=== PATIENT | female | born 1980 | race Caucasian/White ===

== ENCOUNTER 2020-11-21 14:43 | Emergency (ER) | payer MEDICAID, OTHER, SELFPAY ==
[2020-11-21 15:53] VITALS: PULSE 90; RESP 16; TEMP 36.7; O2SAT 100; BMI 22.2
--- NOTE | 2020-11-21 16:14 | ED_ITS ---
HPI - Skin/Abscess/Foreign Bdy General Chief complaint: Skin/Abscess/Foreign Body Stated complaint: cyst Time Seen by Provider: 11/21/20 15:54 Source: patient Mode of arrival: ambulatory Limitations: language barrier History of Present Illness HPI narrative: 40 y/o female presents to the ER with a painful large cyst behind her right ear that has been worsening for the last 6 days. She denies fever or chills. No drainage from the cyst. She has history of similar cyst on the front of her neck that needed to be drained and excised in the past. She is not an IV drug user. She denies any hearing changes, no drainage from her ear. No neck pain or headaches. MD complaint: abscess/boil Onset (ago): day(s) (6) Tetanus up to date: yes Location: head Severity: moderate Severity scale (1-10): 6 Quality: aching Pain Consistency: constant Relieving factors: none Exacerbating factors: palpation Context: none Associated symptoms: denies other symptoms Treatments prior to arrival: none Related Data Previous Rx's Medication Instructions Recorded cephalexin 500 mg capsule 500 mg PO Q6H 7 Days #28 cap 11/21/20 doxycycline hyclate 100 mg tablet 100 mg PO BID 7 Days #14 tab 11/21/20 Allergies Allergy/AdvReac Type Severity Reaction Status Date / Time No Known Allergies Allergy Verified 11/21/20 15:57 Review of Systems Review of Systems: Constitutional: No Fever, No Chills ENT/Mouth: No ear pain, no dental pain Cardiovascular: No Chest Pain, No SOB Gastrointestinal: No Nausea, No Vomiting Musculoskeletal: No joint pain, No Myalgias Skin: + Skin Lesions, No rash Neuro: No Dizziness, No Headache Heme/Lymph: No Bruising, + Lymphadenopathy PMFSH Social History Social History Advance Directives: No Advance Directives Information Provided: Yes Patient : No Physical Exam Vital Signs: Vital Signs: Last Vital Signs Temp 98.0 F 11/21/20 15:53 Pulse 90 11/21/20 15:53 Resp 16 11/21/20 15:53 Pulse Ox 100 11/21/20 15:53 Body Mass Index 22.2 Appearance: Alert. Oriented X3. No acute distress. Eyes: Pupils equal, round and reactive to light. ENT: Behind right ear there is a large 2.5 cm cirucular, tender, erythematous lesion with central fluctuance c/w abscess. TM normal bilaterally. Neck: Normal inspection. Neck supple. No cervical LAD Respiratory: No respiratory distress. Breath sounds normal. Skin: Skin warm and dry. Normal skin color. Normal skin turgor. No rashes. Neuro: Oriented X 3. Nonfocal Course Course Course Narrative: 40 y/o female presenting with abscess behind right ear. No systemic signs of infection. Doubt mastoiditis. Drained and packing placed. Will d/c with abx. To return in 48 hours for packing removal and wound reassessment. D/c instructions reviewed with senior staff consultant and extra wound care supplied provided. Stable for d/c home. Procedures Abscess I/D Site: face Side (if applicable): right (behind right ear) Local Anesthetic: lidocaine 2% Amount of anesthesia used (mL): 1 Technique: incised with blade Sent for culture/gram staining?: No Irrigation: Yes Packing used?: iodoform Complications: bleeding Critical Care Time Critical Care Time Critical Care Time: No Discharge Plan Discharge Clinical Impression: Abscess of skin or subcutaneous tissue Qualifiers: Site of cutaneous abscess: head Qualified Code(s): L02.811 - Cutaneous abscess of head [any part, except face] Patient Disposition: Home, Self-Care Instructions: Abscess Incision and Drainage (DC) Additional Instructions: Your abscess was drained today and packing was placed to help healing from the inside out Recommend following up with your doctor or coming back to the ER in 2 days for re-evaluation and packing removal Take the prescribed antibiotics as directed to help treat the infection If you develop new or worsening symptoms call 911 or come back to the ER for further evaluation. Prescriptions: New doxycycline hyclate 100 mg tablet 100 mg PO BID 7 Days Qty: 14 RF: 0 cephalexin 500 mg capsule 500 mg PO Q6H 7 Days Qty: 28 RF: 0 Print Language: [place]ijani
[2020-11-21] MEDS: Lidocaine HCl 2 % MPF 5 ML VIAL INFILTRATI (16:48)
--- NOTE | 2020-11-21 16:48 | PC.NURSE ---
PT ABCESS CLEANED AND DRAINED AND PACKED BY KRYSTYNA JENSEN DSD APPLIED.
== END 2020-11-21 16:49 | disposition home or self-care (01) ==
PROVIDERS: Emergency Provider Emergency Medicine Emergency Medical Services
DX: L02.811 Cutaneous abscess of head [any part, except face] (principal)
CPT/HCPCS: 10060; 99283; 99284

== ENCOUNTER 2020-12-05 12:29 | Emergency (ER) | payer MEDICAID, OTHER, SELFPAY ==
[2020-12-05 12:34] VITALS: BP 118/86; PULSE 89; RESP 18; TEMP 36.6; O2SAT 100; BMI 23.3
--- NOTE | 2020-12-05 14:32 | ED.GENADULT ---
HPI - General Adult General Chief complaint: General Medical Stated complaint: lump behind ear Time Seen by Provider: 12/05/20 14:30 Source: patient Mode of arrival: ambulatory Limitations: language barrier History of Present Illness HPI narrative: 40-year-old female presents for lump behind her right ear that has gotten larger in the last 4 days. Patient was seen November 21 for lump behind her right ear which she had had for 3 weeks, she had this drained and packed, put on antibiotics, and it resolved. Four days ago this came back. Patient would like to have it surgically removed so that this does not come back in the future. Patient had is feeling well otherwise, no fevers, no trismus, no ear pain, no pain over the mastoid bone. Related Data Previous Rx's Medication Instructions Recorded cephalexin 500 mg capsule 500 mg PO Q6H 7 Days #28 cap 11/21/20 doxycycline hyclate 100 mg tablet 100 mg PO BID 7 Days #14 tab 11/21/20 cephalexin 500 mg capsule 500 mg PO QID 7 Days #28 cap 12/05/20 doxycycline hyclate 100 mg tablet 100 mg PO BID 10 Days #20 tab 12/05/20 Allergies Allergy/AdvReac Type Severity Reaction Status Date / Time No Known Allergies Allergy Verified 12/05/20 12:33 Review of Systems Constitutional: Constitutional: Denies body ache(s), Denies chills, Denies fatigue, Denies fever(s), Denies headache(s), Denies malaise and Denies weakness Eyes: Eyes: Denies diplopia ENT: Denies vertigo, Denies dizziness, Denies otalgia, Denies headache(s), Denies mouth pain, Denies post nasal drip, Denies sinus pain, Denies sinus pressure, Denies sore throat and Denies throat swelling Cardiovascular: Cardiovascular: Denies chest pain, Denies syncope, Denies leg edema, Denies lightheadedness, Denies Loss of Consciousness, Denies palpitations and Denies dyspnea Respiratory: Respiratory: Denies chest congestion, Denies cough and Denies dyspnea Gastrointestinal: Gastrointestinal: Reports abdominal pain, Denies hematochezia, Denies constipation, Denies diarrhea and Denies vomiting Musculoskeletal: Musculoskeletal: Reports no additional musculoskeletal complaints Integumentary/Breasts: Comments: Bent behind right ear Neurologic: Denies confusion, Denies vertigo, Denies dizziness, Denies syncope, Denies headache(s) and Denies weakness Psychiatric: Psychiatric: Denies anxiety, Denies confusion and Denies depression Endocrine: Endocrine: Denies fatigue and Denies palpitations Allergic/Immunologic: Allergic/Immunologic: Denies throat swelling PMFSH Past Medical History Medical History No pertinent past medical history Social History Social History Advance Directives: No Advance Directives Information Provided: No Patient : No Physical Exam Vital Signs: Vital Signs: Last Vital Signs Temp 97.9 F 12/05/20 12:34 Pulse 89 12/05/20 12:34 Resp 18 12/05/20 12:34 BP 118/86 12/05/20 12:34 Pulse Ox 100 12/05/20 12:34 Body Mass Index 23.3 Const: General: No confusion Nutritional Appearance: well nourished Orientation/consciousness: No confusion Limitations: no limitations HENMT: Other: No pain over mastoid area right ear Head: Yes normal to inspection, Yes normocephalic and Yes atraumatic Ears: hearing grossly normal bilaterally, external ears normal, TM's normal bilaterally and EAC's normal General nose exam: Normal external nose present Face and sinus: Yes normal facial exam and Yes sinuses nontender Mouth: Normal oral and palatal mucosa present Throat: Yes posterior oropharynx normal Eyes: Conjunctivae: conjunctivae normal Pupils: Equal, round and reactive pupils present EOM: EOMs intact bilaterally Neck: Neck: Yes full ROM, Yes no lymphadenopathy and Yes supple Resp: Effort & Inspection: normal respiratory effort and able to speak in complete sentences Auscultation: clear to auscultation bilaterally, no crackles, no rales, no rhonchi and no wheezes Cardio: Rate: regular rate Rhythm: regular rhythm Heart sounds: S1 normal heart sound present and S2 normal heart sound present GI: Inspection: Yes normal to inspection Palpation (GI): Soft to palpation, nontender, no guarding and not rigid Percussion: Yes normal to percussion Auscultation: normal bowel sounds Skin: Other: Cyst behind right ear, about 1 mm in diameter that is fluctuant Neuro: General: No confusion Cranial nerves: Yes Equal, round and reactive pupils present Extrem: General: Yes normal to inspection and Yes full ROM Psych: Appearance: grossly normal Affect: normal affect Attitude: cooperative Thought process: Normal thought process present Course Course Course Narrative: 40-year-old female with a recurrent cyst behind her right ear, incision and drainage was performed today, cyst was packed, will have patient return in 3 days for recheck and packing removal. Will start patient on doxycycline and Keflex. I did send for wound culture. The material that was expressed from this cyst was thick and white and granular in texture. Patient tolerated procedure well. Will refer to general surgery Procedures Abscess I/D Site: face Side (if applicable): right Local Anesthetic: lidocaine 1% Amount of anesthesia used (mL): 1 Technique: incised with blade Amount of fluid expressed (mL): 3 Sent for culture/gram staining?: Yes Irrigation: No Packing used?: iodoform Discharge Plan Discharge Clinical Impression: Cyst Patient Disposition: Home, Self-Care Instructions: Abscess Incision and Drainage (DC) Additional Instructions: Please call [facility] on Monday at his number: Please leave the packing in until Monday when I want you to return to the emergency room to be seen. Please fill the prescriptions for antibiotics and take them as prescribed. If you have fevers, worsening pain, trouble opening her mouth, please return to be seen [facility] a [facility]ug?a [facility] de [facility] el a corrigan n[place]: Por favor, deje el empaque hasta el mike cuando quiero que regrese a la dany de emergencias para que lo atiendan. Surta las recetas de antibi?ticos y t?melas seg?n lo prescrito. Si tiene fiebre, empeoramiento del dolor, problemas para abrir la boca, vuelva para que lo vean. Prescriptions: New doxycycline hyclate 100 mg tablet 100 mg PO BID 10 Days Qty: 20 RF: 0 cephalexin 500 mg capsule 500 mg PO QID 7 Days Qty: 28 RF: 0 No Action doxycycline hyclate 100 mg tablet 100 mg PO BID 7 Days Qty: 14 RF: 0 cephalexin 500 mg capsule 500 mg PO Q6H 7 Days Qty: 28 RF: 0 Referrals: Rambissoon,Rosa, MD [Physician] - 2 days (recurrent cyst behind right ear ) Print Language: Citizen Of [place]
[2020-12-05] MEDS: Lidocaine HCl 1 % 20 ML VIAL 10 ML INFILTRATI (15:42)
== END 2020-12-05 15:57 | disposition home or self-care (01) ==
PROVIDERS: Emergency Provider Emergency Medicine Emergency Medical Services
DX: H60.01 Abscess of right external ear (principal); H92.01 Otalgia, right ear
CPT/HCPCS: 69000; 87071; 87205; 99284

== ENCOUNTER 2020-12-08 08:50 | Emergency (ER) | payer MEDICAID, OTHER, SELFPAY ==
[2020-12-08 09:22] VITALS: BP 125/92; PULSE 78; RESP 18; TEMP 36.9; O2SAT 100; BMI 29.6
--- NOTE | 2020-12-08 09:46 | ED_ITS ---
HPI - Wound/Laceration General Chief Complaint: Wound/Laceration Stated Complaint: wound check Time Seen by Provider: 12/08/20 09:41 Source: patient and outside medical sales representative ([employer] outside medical sales representative ) Mode of arrival: ambulatory Limitations: language barrier History of Present Illness HPI narrative: Patient seen here 12/05 for recurrent abscess behind right ear. She was initially seen 11/21 for I&D and given course of PO keflex. Had some improvement but then the abscess returned. She did have an I&D on and was started on Keflex and doxycycline. She was also referred to General surgery. Patient is here for wound check and packing removal. She reports some mild nausea from the antibiotics but denies any fevers, chills, vomiting or diarrhea. Related Data Previous Rx's Medication Instructions Recorded cephalexin 500 mg capsule 500 mg PO Q6H 7 Days #28 cap 11/21/20 doxycycline hyclate 100 mg tablet 100 mg PO BID 7 Days #14 tab 11/21/20 cephalexin 500 mg capsule 500 mg PO QID 7 Days #28 cap 12/05/20 doxycycline hyclate 100 mg tablet 100 mg PO BID 10 Days #20 tab 12/05/20 Allergies Allergy/AdvReac Type Severity Reaction Status Date / Time No Known Allergies Allergy Verified 12/08/20 09:22 Review of Systems Review of Systems: Yes all other systems are reviewed and are negative Constitutional: Constitutional: Reports no additional constitutional complaints, Denies body ache(s), Denies chills, Denies fever(s), Denies headache(s) and Denies weakness Eyes: Eyes: Reports no additional eye complaints and Denies change in vision ENT: Reports system reviewed and no additional complaints, except as documented, Denies dizziness, Denies headache(s), Denies nasal congestion, Denies nasal discharge and Denies neck pain Cardiovascular: Cardiovascular: Reports no additional cardiovascular complaints, Denies chest pain, Denies leg edema and Denies dyspnea Respiratory: Respiratory: Reports no additional respiratory complaints, Denies cough and Denies dyspnea Gastrointestinal: Gastrointestinal: Reports no additional gastrointestinal complaints, Denies abdominal pain, Denies diarrhea, Reports nausea and Denies vomiting Genitourinary: Genitourinary: Reports no additional female genitourinary complaints and Denies urinary incontinence Musculoskeletal: Musculoskeletal: Reports no additional musculoskeletal complaints, Denies back pain, Denies arthralgias, Denies joint swelling, Denies neck pain, Denies numbness and Denies tingling Integumentary/Breasts: Skin/Breast: Reports system reviewed and no additional complaints, except as docu and Denies rash Neurologic: Reports system reviewed and no additional complaints, except as documented, Denies Abnormal speech present, Denies dizziness, Denies head ache(s), Denies numbness, Denies tingling and Denies weakness PMFSH Past Medical History Attestation statement: The following information was validated with the patient. Source: old records reviewed and nursing notes reviewed Medical History No pertinent past medical history Social History Social History Advance Directives: No Patient : No Physical Exam Vital Signs: Vital Signs: Last Vital Signs Temp 98.4 F 12/08/20 09:22 Pulse 78 12/08/20 09:22 Resp 18 12/08/20 09:22 BP 125/92 H 12/08/20 09:22 Pulse Ox 100 12/08/20 09:22 Body Mass Index 29.6 Const: General: cooperative, healthy appearing, comfortable and no acute distress Orientation/consciousness: patient oriented x3 Limitations: no limitations HENMT: Other: Postauricular there is a small area with a healing abscess noted. No fluctuance, induration or swelling. No tenderness. Unable to express any drainage in the site. Head: Yes normal to inspection Ears: h earing grossly normal bilaterally General nose exam: Normal external nose present Face and sinus: Yes normal facial exam Mouth: Normal oral and palatal mucosa present Throat: Yes posterior oropharynx normal Eyes: General: appearance normal, both eyes and all related structures Pupils: Equal, round and reactive pupils present Neck: Neck: Yes normal visual inspection Chest: Chest palpation & inspection: normal inspection of the chest Resp: Effort & Inspection: normal respiratory effort Auscultation: clear to auscultation bilaterally Cardio: Rate: regular rate Rhythm: regular rhythm Peripheral pulses: Peripheral pulses 2+ throughout GI: Inspection: Yes normal to inspection Palpation (GI): Soft to palpation and nontender Auscultation: normal bowel sounds Back/Spine/Pelvis: Thoracic/Lumbar Spine: thoracic and lumbar spine normal to inspection Skin: General skin exam: no rashes or lesions noted Neuro: General: patient oriented x3, no focal motor deficits and normal sensation to monofilament Cranial nerves: Yes Equal, round and reactive pupils present Cognition (Neuro): normal cognition Speech: No Abnormal speech present Gait exam (Neuro): Normal gait present Motor exam (neuro): 5/5 motor strength present throughout Extrem: General: Yes normal to inspection Course Course Course Narrative: Healing abscess behind the right ear. Packing is removed. Area cleansed with normal saline and a topical antibiotic ointment. Instructed patient to continue with oral antibiotics and follow-up with general surgery as previously recommended. Reviewed worrisome signs and symptoms of when to return to the emergency department. Comfortable discharge home. MDM - Wound/Laceration Differential Diagnosis Differential diagnosis: Likely abscess Medical Records Attestation: I reviewed the patient's medical records. Lab Data Attestation: I reviewed the patient's lab results. Discharge Plan Discharge Clinical Impression: Abscess re-check Patient Disposition: Home, Self-Care Instructions: Abscess Follow-up (ED) Additional Instructions: Continue to follow-up with general surgery as previously recommended Take your antibiotics with food Prescriptions: No Action doxycycline hyclate 100 mg tablet 100 mg PO BID 7 Days Qty: 14 RF: 0 cephalexin 500 mg capsule 500 mg PO Q6H 7 Days Qty: 28 RF: 0 doxycycline hyclate 100 mg tablet 100 mg PO BID 10 Days Qty: 20 RF: 0 cephalexin 500 mg capsule 500 mg PO QID 7 Days Qty: 28 RF: 0 Referrals: Physician,Unknown [Primary Care Provider] - 2 days
== END 2020-12-08 10:18 | disposition home or self-care (01) ==
PROVIDERS: Emergency Provider Emergency Medicine
DX: Z48.00 Encounter for change or removal of nonsurgical wound dressing (principal)
CPT/HCPCS: 99282; 99283

== ENCOUNTER 2023-11-06 21:00 | Emergency (ER) | payer MEDICAID, OTHER, SELFPAY ==
[2023-11-06 21:06] VITALS: BP 135/86; PULSE 82; RESP 16; TEMP 36.6; O2SAT 100; BMI 27.4
[2023-11-07 01:57] VITALS: BP 157/95; PULSE 85; RESP 16; TEMP 36.7; O2SAT 100
--- NOTE | 2023-11-07 03:42 | ED_ITS ---
HPI - Back Pain/Injury General Chief Complaint: Back Pain/Injury Stated Complaint: lower back pain Time Seen by Provider: 11/07/23 03:22 Source: patient Mode of arrival: ambulatory Limitations: language barrier History of Present Illness ED Provider: Dr. Mir HPI Narrative: ZOË used for history and physical. Patient 3 months ago had back pain similar to the pain that she is having now, only it is worse today. Denies injury. Pain radiates down right leg. No bowel or bladder incontinence, no perineal numbness MD elicited complaint: back pain Pertinent past history: prior back pain Onset (ago): hour(s) Timing: constant Severity: moderate Related Data Previous Rx's ?Medication ?Instructions ?Recorded cephalexin 500 mg capsule 500 mg PO Q6H 7 days #28 caps 11/21/20 doxycycline hyclate 100 mg tablet 100 mg PO BID 7 days #14 tabs 11/21/20 cephalexin 500 mg capsule 500 mg PO QID 7 days #28 caps 12/05/20 doxycycline hyclate 100 mg tablet 100 mg PO BID 10 days #20 tabs 12/05/20 cyclobenzaprine 10 mg tablet 10 mg PO TID #10 tabs 11/07/23 naproxen 500 mg tablet (Naprosyn) 500 mg PO BID #20 tabs 11/07/23 Allergies Allergy/AdvReac Type Severity Reaction Status Date / Time No Known Allergies Allergy Verified 11/06/23 21:07 Review of Systems Review of Systems: Yes all other systems are reviewed and are negative Neurologic: Denies Sensory deficit (Neuro) [facility] Past Medical History Medical History No pertinent past medical history Social History Social History Advance Directives: No Advance Directives Information Provided: No Do you have a plan to hurt others: No Plan Physical Exam Vital Signs: Vital Signs: Last Vital Signs Temp 98.0 F 11/07/23 01:57 Pulse 85 11/07/23 01:57 Resp 16 11/07/23 01:57 BP 157/95 H 11/07/23 01:57 Pulse Ox 100 11/07/23 01:57 O2 Del Method Room Air 11/07/23 01:57 BMI result Body Mass Index 27.4 Const: General: healthy appearing Nutritional Appearance: average body habitus Orientation/consciousness: oriented to person and patient oriented x3 Limitations: no limitations HEENT: Head: Yes normal to inspection Ears: external ears normal General nose exam: Normal external nose present Mouth: Normal oral and palatal mucosa present and oropharynx normal Throat: Yes posterior oropharynx normal Eyes: General: appearance normal, both eyes and all related structures Neck: Other: supple Neck: Yes normal visual inspection Chest: Chest palpation & inspection: normal inspection of the chest Resp: Auscultation: clear to auscultation bilaterally Cardio: Jugular venous distension: no JVD Rate: regular rate Rhythm: regular rhythm Heart sounds: S1 normal heart sound present and S2 normal heart sound present GI: Inspection: Yes normal to inspection Palpation (GI): Soft to palpation, nontender and No hepatosplenomegaly present Auscultation: normal bowel sounds Back/Spine/Pelvis: Other: right SI and right sciatica pain, good leg strength, good dorsi and plantar flexion Skin: General skin exam: no rashes or lesions noted Neuro: General: oriented to person and patient oriented x3 Cranial nerves: Yes CN's II-XII intact bilaterally Motor exam (neuro): 5/5 motor strength present throughout Sensory Exam: No Sensory deficit (Neuro) Extrem: General: Yes normal to inspection Psych: Appearance: grossly normal Course Reevaluation(s) Reevaluation #1: patient given nsaids and flexeril will get patient home. She recently had plain xrays at another facility Time: 03:47 Medical Decision Making Differential Diagnosis Differential Diagnoses: The differential diagnosis associated with the presentation includes (lumbar pain, radiculopathy, sciatica) Tests considered The following testing was considered but not selected: MRI considered but patient is non focal with no bowel or bladder incontinence Discharge Plan Discharge Clinical Impression: Lumbar radiculopathy, Sciatica, Strain of lumbar region Patient Disposition: Home, Self-Care Instructions: Sciatica (ED), Lumbar Radiculopathy (ED), Lower Back Exercises (ED) Prescriptions: New cyclobenzaprine 10 mg tablet 10 mg PO TID Qty: 10 0RF naproxen [Naprosyn] 500 mg tablet 500 mg PO BID Qty: 20 0RF No Action doxycycline hyclate 100 mg tablet 100 mg PO BID 7 Days Qty: 14 0RF cephalexin 500 mg capsule 500 mg PO Q6H 7 Days Qty: 28 0RF doxycycline hyclate 100 mg tablet 100 mg PO BID 10 Days Qty: 20 0RF cephalexin 500 mg capsule 500 mg PO QID 7 Days Qty: 28 0RF Referrals: Physician,Unknown J [Primary Care Provider] - 5 days Print Language: Spanish
[2023-11-07] MEDS: Cyclobenzaprine HCl 10 MG TABLET PO (03:50)
[2023-11-07] MEDS: Ketorolac Tromethamine 60 MG/2 ML VIAL IM (03:51)
[2023-11-07 03:55] VITALS: BP 153/97; PULSE 88; RESP 14; TEMP 36.4; O2SAT 98
[2023-11-07 03:59] VITALS: BP 153/97; PULSE 88; RESP 14; TEMP 36.4; O2SAT 98
== END 2023-11-07 04:00 | disposition home or self-care (01) ==
PROVIDERS: Emergency Provider Emergency Medicine
DX: M54.16 Radiculopathy, lumbar region (principal)
CPT/HCPCS: 96372; 99284; J1885

== ENCOUNTER 2024-03-27 09:37 | Emergency (ER) | payer MEDICAID, OTHER, SELFPAY ==
[2024-03-27 10:20] VITALS: BP 146/102; PULSE 83; RESP 18; TEMP 36.2; O2SAT 99; BMI 28.0
--- NOTE | 2024-03-27 12:07 | ED.GENADULT ---
HPI - General Adult General Chief complaint: Allergic Reaction Stated complaint: ? Allergic Rx Time Seen by Provider: 03/27/24 12:06 Source: patient and gaming cage worker (all interactions with this patient were facilitated with a Finnish gaming cage worker ) Mode of arrival: ambulatory Limitations: language barrier (all interactions with this patient were facilitated with a Finnish gaming cage worker ) History of Present Illness ED Provider: Kelsy Palomares PA-C HPI narrative: Patient is a 43 year old assigned female at with no reported medical history presenting to the emergency department today with a swollen lymph node. Patient states that she got 3 vaccines on 03/25/2024 of COVID, influenza, and hepatitis B. Patient states that she noticed a small swollen lymph node in her left neck and she is concerned about it. Patient denies any pain there. Patient denies any dizziness, lightheadedness, abdominal pain, nausea, vomiting, fever, chills, blurry vision, double vision, loss of vision, chest pain, difficulty breathing, shortness of breath, back pain, night sweats, pain with urination, increased urinary frequency, increased urinary urgency, blood in her urine or stool, syncope or a near syncopal episode, recent trauma or falls, bowel incontinence, bladder incontinence, or any other complaints at this time. Relieving factors: none Exacerbating factors: none Associated symptoms: denies other symptoms Treatments prior to arrival: none Related Data Previous Rx's ?Medication ?Instructions ?Recorded cephalexin 500 mg capsule 500 mg PO Q6H 7 days #28 caps 11/21/20 doxycycline hyclate 100 mg tablet 100 mg PO BID 7 days #14 tabs 11/21/20 cephalexin 500 mg capsule 500 mg PO QID 7 days #28 caps 12/05/20 doxycycline hyclate 100 mg tablet 100 mg PO BID 10 days #20 tabs 12/05/20 cyclobenzaprine 10 mg tablet 10 mg PO TID #10 tabs 11/07/23 naproxen 500 mg tablet (Naprosyn) 500 mg PO BID #20 tabs 11/07/23 Allergies Allergy/AdvReac Type Severity Reaction Status Date / Time No Known Allergies Allergy Verified 03/27/24 10:21 Review of Systems Constitutional: Constitutional: Reports no additional constitutional complaints, Denies chills, Denies fever(s) and Denies night sweats Eyes: Eyes: Reports no additional eye complaints, Denies blurry vision, Denies change in vision, Denies diplopia, Denies eye discharge, Denies loss of vision and Denies eye pain ENT: Denies dizziness Comments: swollen left node in left neck Cardiovascular: Cardiovascular: Reports no additional cardiovascular complaints, Denies chest pain, Denies lightheadedness, Denies Loss of Consciousness and Denies dyspnea Respiratory: Respiratory: Reports no additional respiratory complaints and Denies dyspnea Gastrointestinal: Gastrointestinal: Reports no additional gastrointestinal complaints, Denies abdominal pain, Denies melena, Denies hematochezia, Denies change in bowel habits and Denies change in stool character Genitourinary: Genitourinary: Denies hematuria, Denies urinary frequency, Denies dysuria, Denies urinary incontinence, Denies urinary hesitancy and Denies urinary urgency Musculoskeletal: Musculoskeletal: Reports no additional musculoskeletal complaints, Denies numbness and Denies tingling Neurologic: Denies dizziness, Denies loss of vision, Denies numbness and Denies tingling Psychiatric: Psychiatric: Reports no additional psychiatric complaints Endocrine: Endocrine: Reports no additional endocrine complaints Hematologic/Lymphatic: Hematologic/Lymphatic: Reports no additional hematologic/lymphatic complaints Allergic/Immunologic: Allergic/Immunologic: Reports no additional allergic/immunologic complaints PMFSH Past Medical History Attestation statement: The following information was validated with the patient. Source: old records reviewed and nursing notes reviewed Medical History No pertinent past medical history Social History Social History Alcohol intake: never Advance Directives: No Advance Directives Information Provided: Yes Do you have a plan to hurt others: No Plan Physical Exam ED Vital Signs: Vital Signs - 24 hr 03/27/24 10:20 03/27/24 13:18 Temperature 97.2 F 97.5 F Pulse Rate 83 Respiratory Rate 18 13 Blood Pressure 146/102 H 144/105 H Pulse Oximetry 99 98 Oxygen Delivery Method Room Air Room Air BMI result Body Mass Index 28.0 Const General: cooperative, no acute distress, alert and awake Nutritional Appearance: well nourished Orientation/consciousness: patient oriented x3 Limitations: no limitations HENMT Head: Yes normal to inspection and Yes atraumatic Ears: hearing grossly normal bilaterally and external ears normal General nose exam: Normal external nose present, no nasal discharge noted and no epistaxis Face and sinus: Yes normal facial exam, No abrasion and No laceration Mouth: Normal oral and palatal mucosa present, no drooling and no muffled voice Eyes General: appearance normal, both eyes and all related structures Periorbital: periorbital findings normal Eyelids: Yes eyelids normal Conjunctivae: conjunctivae normal Pupils: Equal, round and reactive pupils present EOM: EOMs intact bilaterally Neck Neck: Yes normal visual inspection, Yes full ROM and Yes no lymphadenopathy Lymphatic: lymphadenopathy left anterior cervical Chest Chest palpation & inspection: normal inspection of the chest Resp Effort & Inspection: normal respiratory effort and able to speak in complete sentences GI Inspection: Yes normal to inspection Neuro General: patient oriented x3 and moves all extremities Cranial nerves: Yes Equal, round and reactive pupils present Cognition (Neuro): normal cognition Extrem General: Yes normal to inspection, Yes full ROM and Yes capillary refill normal Psych Appearance: grossly normal Mental Status: mental status grossly normal Affect: normal affect Attitude: cooperative Thought process: Normal thought process present Thought content: Normal thought content present Insight: Good insight present (Psych) Medical Decision Making Medical Decision Making MDM Narrative: Patient is a 43 year old assigned female at with no reported medical history presenting to the emergency department today with a swollen lymph node. Patient's physical exam was as noted in the physical exam portion of this note. Patient's blood work showed an elevated CRP of 2.28 but otherwise unremarkable. I explained my physical exam findings as well as all test results to the patient. I answered all questions asked by the patient. Patient's clinical presentation is most consistent with a reactive lymph node. I stressed the importance of the patient taking her medication as directed (either prescribed or as the over the counter packaging recommends). I stressed the importance of the patient following up with her primary care provider. I stressed the importance of the patient returning to the emergency department immediately if her symptoms were to worsen or if she were to develop any dizziness, shortness of breath, difficulty breathing, chest pain, blurry vision, loss of vision, nausea, vomiting, abdominal pain, fever, chills, back pain, or any other complaints. Patient verbalized agreement and understanding with this treatment plan and discharge. Differential Diagnosis Differential Diagnoses: The differential diagnosis associated with the presentation includes Lymphadenopathy Reactive lymph node Admission/Observation Consideration of admission/observation: Escalation of care including admission/observation considered Patient would have been admitted to the hospital had her work up had any findings where hospital admission was appropriate and her clinical presentation warranted hospital admission. Lab Data [facility] Lab Attestation statement: I reviewed the patient's lab results. My interpretation of these results are in the MDM Rationale portion of this note. 03/27/24 13:26 03/27/24 13:26 Labs: Lab Results 03/27/24 Range/Units 13:26 WBC 6.1 (4.8-10.8) X10*3/uL RBC 4.16 L (4.20-5.50) X10*6/uL Hgb 12.7 (12.0-16.0) g/dl Hct 38.0 (37.0-47.0) % MCV 91.3 (80.0-98.0) fL MCH 30.5 (27.0-33.0) pg MCHC 33.4 (31.0-35.0) g/dl RDW 13.9 (11.0-16.0) % Plt Count 277 (160-400) X10*3/uL MPV 8.5 L (9.4-12.3) fL Immature Gran % (Auto) 0.3 (0.0-0.4) % Neut % (Auto) 58.8 (45-73) % Lymph % (Auto) 27.6 (20-40) % [place] % (Auto) 11.5 H (2-11) % Eos % (Auto) 1.6 (0-4) % Baso % (Auto) 0.2 (0-2) % Lymph # (Auto) 1.7 (1.2-4.9) X10*3/uL [place] # (Auto) 0.7 (0.1-1.2) X10*3/uL Eos # (Auto) 0.1 (0.0-0.4) X10*3/uL Baso # (Auto) 0.0 (0.0-0.2) X10*3/uL Abs Immat Gran (auto) 0.02 (0.00-0.03) X10*3/uL Absolute Neuts (auto) 3.6 (2.0-8.3) x10*3/uL Absolute Nucleated RBC 0.000 (0.0-0.012) X10*3/uL Nucleated RBC % (auto) 0.0 (0.0-0.2) /100WBC Sodium 138 (135-145) mmol/L Potassium 3.9 (3.3-5.1) mmol/L Chloride 108 (96-108) mmol/L Carbon Dioxide 26 (22-29) mmol/L Anion Gap 8 L (12-20) BUN 10 (9-16) mg/dL Creatinine 0.65 (0.5-1.4) mg/dL Estim Creat Clear Calc 99.1 Estimated GFR > 60 Random Glucose 84 (60-115) mg/dL Calcium 9.3 (8.4-10.2) mg/dL Total Bilirubin 0.3 (0.0-1.0) mg/dL AST 30 (5-31) U/L ALT 24 (0-31) U/L Alkaline Phosphatase 113 (39-117) U/L C-Reactive Protein 2.28 H (< or = 0.50) mg/dL Total Protein 7.6 (6.5-8.0) g/dL Albumin 4.3 (3.5-5.0) g/dL Discharge Plan Discharge Clinical Impression: Lymphadenopathy Patient Disposition: Home, Self-Care Instructions: Lymphadenopathy (ED) Additional Instructions: Your swollen lymph node is likely reactive to receiving vaccinations. However, if it does not resolve in 1-2 weeks, you should call to establish and follow up with a general surgeon for further evaluation. Follow up with your primary care provider. Return to the emergency department immediately if your symptoms worsen or if you develop any dizziness, shortness of breath, difficulty breathing, chest pain, blurry vision, loss of vision, nausea, vomiting, abdominal pain, fever, chills, back pain, or any other complaints. O n?dulo linf?makayla inchado ? provavelmente reativo ? vacina??o. No entanto, se o incha?o n?o desaparecer em 1-2 semanas, deve telefonar para marcar rafiq consulta com um cirurgi?o elfego para rafiq avalia??o mais aprofundada. Acompanhe o seu prestador de cuidados prim?[place]. Dirija-se imediatamente ao servi?o de urg?ncia se os seus sintomas se agravarem ou se tiver tonturas, falta de ar, dificuldade em respirar, dores no peito, vis?o turva, perda de vis?o, n?useas, v?mitos, dores abdominais, febre, arrepios, dores veronica swapna ou quaisquer outras queixas. Prescriptions: No Action doxycycline hyclate 100 mg tablet 100 mg PO BID 7 Days Qty: 14 0RF cephalexin 500 mg capsule 500 mg PO Q6H 7 Days Qty: 28 0RF doxycycline hyclate 100 mg tablet 100 mg PO BID 10 Days Qty: 20 0RF cephalexin 500 mg capsule 500 mg PO QID 7 Days Qty: 28 0RF cyclobenzaprine 10 mg tablet 10 mg PO TID Qty: 10 0RF naproxen [Naprosyn] 500 mg tablet 500 mg PO BID Qty: 20 0RF Referrals: [facility] General Surgeons [Provider Group] (Call to establish and follow up with a general surgeon IF the lymphnode swelling does not go down in 1-2 weeks. Ligue para estabelecer e fazer um acompanhamento com um cirurgi?o elfego SE o incha?o dos g?nglios linf?ticos n?o diminuir em 1-2 semanas.) [facility] Family Medicine [Provider Group] (Call to establish and follow up with a primary care provider. If you already have a primary care provider, please follow up with them. Telefone para estabelecer e fazer o acompanhamento com um prestador de cuidados prim[place]. Se j? tiver um prestador de cuidados prim[place], contacte-o.) [facility] [Provider Group] (Call to establish and follow up with a primary care provider. If you already have a primary care provider, please follow up with them. Telefone para estabelecer e fazer o acompanhamento com um prestador de cuidados prim[place]. Se j? tiver um prestador de cuidados prim?reece, contacte-o.) [facility] Primary [facility],[place] [Provider Group] (Call to establish and follow up with a primary care provider. If you already have a primary care provider, please follow up with them. Telefone para estabelecer e fazer o acompanhamento com um prestador de cuidados prim?[place]. Se j? tiver um prestador de cuidados prim?reece, contacte-o.) Stand Alone Forms: Work/School Release Print Language: Finnish
[2024-03-27 13:18] VITALS: BP 144/105; RESP 13; TEMP 36.4; O2SAT 98
[2024-03-27 13:31] LABS: MANUAL DIFF FLAG NO
[2024-03-27 13:34] LABS: Basophils Percent Auto 0.2 % (0-2); Eosinophils Absolute Auto 0.1 X10*3/uL (0.0-0.4); Eosinophils Percent Auto 1.6 % (0-4); Hemoglobin 12.7 g/dl (12.0-16.0); Imm Gran Abs Auto 0.02 X10*3/uL (0.00-0.03); Imm Gran Pct Auto 0.3 % (0.0-0.4); Lymphocytes Absolute Auto 1.7 X10*3/uL (1.2-4.9); Lymphocytes Percent Auto 27.6 % (20-40); Mean Corpuscular HGB Conc 33.4 g/dl (31.0-35.0); Mean Corpuscular Hemoglobin 30.5 pg (27.0-33.0); Mean Corpuscular Volume 91.3 fL (80.0-98.0); Mean Platelet Volume 8.5 fL (9.4-12.3); Monocytes Absolute Auto 0.7 X10*3/uL (0.1-1.2); Monocytes Percent Auto 11.5 % (2-11); Neutrophils Absolute Auto 3.6 x10*3/uL (2.0-8.3); Neutrophils Percent Auto 58.8 % (45-73); Platelet Count 277 X10*3/uL (160-400); Red Blood Count 4.16 X10*6/uL (4.20-5.50); Red Cell Distribution Width 13.9 % (11.0-16.0); White Blood Count 6.1 X10*3/uL (4.8-10.8)
[2024-03-27 13:49] LABS: Alanine Aminotransferase 24 U/L (0-31); Albumin Level 4.3 g/dL (3.5-5.0); Alkaline Phosphatase 113 U/L (39-117); Anion Gap 8 (12-20); Aspartate Amino Transferase 30 U/L (5-31); Bilirubin Total 0.3 mg/dL (0.0-1.0); Blood Urea Nitrogen 10 mg/dL (9-16); C Reactive Protein 2.28 mg/dL (< or = 0.50); Calcium 9.3 mg/dL (8.4-10.2); Carbon Dioxide 26 mmol/L (22-29); Chloride 108 mmol/L (96-108); Creatinine Clr Calc Pharmacy 99.1; Estimated Glomerular Filt Rate > 60; Glucose Random 84 mg/dL (60-115); Potassium 3.9 mmol/L (3.3-5.1); Sodium 138 mmol/L (135-145); Total Protein 7.6 g/dL (6.5-8.0)
[2024-03-27 14:26] VITALS: BP 144/105; PULSE 68; RESP 13; TEMP 36.4; O2SAT 98
[2024-03-27 16:50] LABS: Erythrocyte Sedimentation Rate 20 MM/HR (0-20)
== END 2024-03-27 14:27 | disposition home or self-care (01) ==
PROVIDERS: Physician Assistant Medical; Emergency Provider Student in an Organized Health Care Education/Training Program
DX: R59.1 Generalized enlarged lymph nodes (principal); R79.89 Other specified abnormal findings of blood chemistry; Z79.899 Other long term (current) drug therapy
CPT/HCPCS: 36415; 80053; 85025; 85652; 86140; 99283